=== PATIENT | female | born 1965 | race Caucasian/White ===

== ENCOUNTER → 2020-01-20 10:16 | Outpatient (CLI) | payer BC, SELFPAY ==
--- NOTE | 2020-01-20 10:20 | XR_ITS ---
PROCEDURE: XR CHEST 2V CLINICAL HISTORY: CONTUSION OF LT CHEST WALL Posttraumatic pain COMPARISON: No exams were available for comparison FINDINGS: The cardiomediastinal silhouette and pulmonary vascularity are within normal limits. The lungs are clear without infiltrates, suspicious nodules, or pleural effusions. No acute bony abnormalities. IMPRESSION: No acute findings. Dictated by: Luisito Wesley MD 01/20/2020 11:49 Luisito Wesley MD in [place] 01/20/2020 11:49
--- NOTE | 2020-01-20 10:20 | XR_ITS ---
PROCEDURE: XR RIBS LT MIN 3V W CXR1V CLINICAL INDICATION: CONTUSION OF LT CHEST WALL COMPARISON: No exams were available for comparison FINDINGS: Multiple views of the left ribs show no obvious fracture. No lytic or blastic change. Consider follow-up in 7-[address] with 3D reformats if pain persists Frontal view of the chest shows no acute finding IMPRESSION: No acute findings. Dictated by: Luisito Wesley MD 01/20/2020 11:51 Luisito Wesley MD in [place] 01/20/2020 11:51
== END ==
PROVIDERS: PCP Family Medicine; Visit Provider Family Medicine
DX: S20.212A Contusion of left front wall of thorax, initial encounter (principal)
CPT/HCPCS: 71046; 71101

== ENCOUNTER → 2020-03-05 12:13 | Outpatient (CLI) | payer BC, SELFPAY ==
[2020-03-05 12:16] LABS: Adenovirus,PCR Not Detected (NotDetected); Bordetella Pertussis Not Detected (NotDetected); Chlamydophila Pneumoniae, PCR Not Detected (NotDetected); Coronavirus 229E Not Detected (NotDetected); Coronavirus NL63 Not Detected (NotDetected); Coronavirus OC43 Not Detected (NotDetected); Coronovirus HKU1,PCR Not Detected (NotDetected); Human Metapneumovirus Not Detected (NotDetected); Influenza A, PCR Not Detected (NotDetected); Influenza AH1, 2009 Not Detected (NotDetected); Influenza AH1, PCR Not Detected (NotDetected); Influenza AH3,PCR Not Detected (NotDetected); Influenza B, PCR Not Detected (NotDetected); Mycoplasma Pneumoniae, PCR Not Detected (NotDetected); Parainfluenza 1, PCR Not Detected (NotDetected); Parainfluenza 2, PCR Not Detected (NotDetected); Parainfluenza 3, PCR Not Detected (NotDetected); Parainfluenza 4, PCR Not Detected (NotDetected); Respiratory Syncytial Virus Not Detected (NotDetected)
[2020-03-05 13:11] LABS: Basophils % 0.2 % (0.1-2.0); Eosinophils # 0.1 K/mm3 (0.0-0.4); Eosinophils % 1.3 % (0.1-12.0); Hematocrit 42.5 % (37.0-47.0); Hemoglobin 14.1 g/dL (12.2-16.2); Lymphocytes % 10.9 % (10-50); Mean Corpuscular HGB Conc 33.2 g/dL (31.8-35.4); Mean Corpuscular Hemoglobin 32.4 pg (27.0-31.2); Mean Corpuscular Volume 97.6 fl (81-99); Mean Platelet Volume 9.6 fl (7.4-10.4); Monocytes # 0.5 K/mm3 (0.1-1.0); Monocytes % 6.2 % (1.7-9.3); Neutrophils # 7.1 K/mm3 (1.8-7.8); Neutrophils % 81.4 % (37.0-80.0); Platelet Count 173 K/mm3 (142-424); Red Blood Count 4.36 M/mm3 (4.20-5.40); Red Cell Distribution Width 13.7 % (11.5-17.5); White Blood Count 8.7 K/mm3 (4.8-10.8)
[2020-03-05 17:08] LABS: Rhinovirus/Enterovirus Detected (NotDetected)
== END ==
PROVIDERS: Visit Provider Nurse Practitioner
DX: Z03.818 Encounter for observation for suspected exposure to other biological agents ruled out (principal); B34.1 Enterovirus infection, unspecified
CPT/HCPCS: 36415; 85025; 87486; 87581; 87633; 87798

== ENCOUNTER → 2022-10-02 15:48 | Outpatient (CLI) | payer BC, SELFPAY ==
--- NOTE | 2022-10-02 15:53 | MM_ITS ---
PROCEDURE INFORMATION: Exam: MG Bilateral Screening 3D Mammography Exam date and time: 10/02/2022 3:45 PM Age: 57 years old Clinical indication: Screening. No family history of breast cancer. TECHNIQUE: Imaging protocol: Bilateral Screening tomosynthesis and 2D mammography including computer-aided detection (CAD) when performed. COMPARISON: 1. MG DMSB DIG MAMM-SCREEN FARAZ 01/19/2015 4:21 PM 2. MG DMSB DIGITAL MAMM-SCREEN BILATERAL 07/28/2010 1:44 PM 3. BL US BREAST-LT COMPLETE W/AXILLA 02/12/2015 3:14 PM 4. BR US BREAST-RT COMPLETE W/AXILLA 02/12/2015 2:54 PM FINDINGS: MAMMOGRAPHY: Breast composition: There are scattered areas of fibroglandular density. Mass: Questionable 0.5 cm oval mass in the left upper outer quadrant posterior 3rd. Architectural distortion: None. Calcifications: No suspicious calcifications. Asymmetric density: None. Skin thickening: None. Axillary adenopathy: None. IMPRESSION: Patient will be recalled for left diagnostic spot compression in CC and MLO and left sonography for further evaluation of questionable left breast mass. ASSESSMENT: BI-RADS Category 0: Incomplete- Need Additional Imaging Evaluation and/or Prior Mammograms for Comparison
== END ==
PROVIDERS: PCP Family Medicine; Visit Provider Family Medicine
DX: Z12.31 Encounter for screening mammogram for malignant neoplasm of breast (principal)
CPT/HCPCS: 77063; 77067

== ENCOUNTER → 2022-10-07 10:41 | Outpatient (CLI) | payer BC, SELFPAY ==
[2022-10-07 11:07] LABS: Basophils % 0.3 % (0.1-2.0); Eosinophils # 0.2 K/mm3 (0.0-0.4); Eosinophils % 4.3 % (0.1-12.0); Hematocrit 34.4 % (37.0-47.0); Hemoglobin 11.4 g/dL (12.2-16.2); Lymphocytes # 1.5 K/mm3 (0.7-4.5); Lymphocytes % 31.2 % (10-50); Mean Corpuscular HGB Conc 33.2 g/dL (31.8-35.4); Mean Corpuscular Hemoglobin 29.7 pg (27.0-31.2); Mean Corpuscular Volume 89.7 fl (81-99); Mean Platelet Volume 10.5 fl (7.4-10.4); Monocytes # 0.3 K/mm3 (0.1-1.0); Monocytes % 6.4 % (1.7-9.3); Neutrophils # 2.9 K/mm3 (1.8-7.8); Neutrophils % 57.8 % (37.0-80.0); Platelet Count 221 K/mm3 (142-424); Red Blood Count 3.84 M/mm3 (4.20-5.40); Red Cell Distribution Width 13.6 % (11.5-17.5); White Blood Count 4.9 K/mm3 (4.8-10.8)
[2022-10-07 11:23] LABS: Chloride 104 mmol/L (98-107); Potassium 4.5 mmoL/L (3.5-5.1); Sodium 139 mmol/L (136-145)
[2022-10-07 11:25] LABS: Blood Urea Nitrogen 24 mg/dl (7-17); Estimated Glomerular Filt Rate 74 ml/min (>60); GFR (African American) 90 ML/MIN (>60)
[2022-10-07 11:26] LABS: Alanine Aminotransferase 19 U/L (12-78); Albumin Level 3.6 g/dl (3.5-5.0); Albumin/Globulin Ratio 1.4 (1.1-1.8); Alkaline Phosphatase 95 U/L (38-126); Anion Gap 10.5 mEq/L (5-15); Aspartate Amino Transferase 28 U/L (14-36); Bilirubin,Total 0.3 mg/dl (0.2-1.3); Carbon Dioxide 29 mmol/L (22.0-30.0); Cholesterol 231 mg/dl (140-200); Globulin 2.6 g/dL (1.3-3.2); Glucose 94 mg/dl (74-100); Total Protein,Serum 6.2 g/dl (6.3-8.2); Triglycerides 253 mg/dl (30-150); VLDL Cholesterol 51 mg/dL (0-40)
[2022-10-07 11:27] LABS: Chol/HDL Ratio 4.7 (1-3.5); HDL Cholesterol 49 mg/dl (40-60)
[2022-10-07 11:37] LABS: Direct LDL Cholesterol 89.17 mg/dL (100-129)
[2022-10-07 11:57] LABS: Thyroid Stimulating Hormone 2.06 uIU/mL (0.465-4.68)
== END ==
PROVIDERS: PCP Family Medicine; Visit Provider Family Medicine
DX: I10 Essential (primary) hypertension (principal); E78.5 Hyperlipidemia, unspecified; E01.0 Iodine-deficiency related diffuse (endemic) goiter; F41.8 Other specified anxiety disorders
CPT/HCPCS: 36415; 80053; 80061; 84443; 85025

== ENCOUNTER 2023-07-22 16:23 | Emergency (ER) | payer BC, SELFPAY ==
--- NOTE | 2023-07-22 17:04 | EXP.UTC ---
Discharge Plan Disposition Patient Disposition: Home, Self-Care Condition: Good Prescriptions Prescriptions: New azithromycin [Zithromax] 250 mg tablet 250 mg PO UD DOSE PK Qty: 6 0RF Rx Instructions: Take two (2) tablets today, then one (1) tablet days #2 thru #5 benzonatate 100 mg capsule 100 mg PO TIDP PRN (Reason: Cough) Qty: 30 0RF methylprednisolone 4 mg Tablets,Dose Pack 4 mg PO DIRECTED 6 Days Qty: 21 0RF Rx Instructions: Take 1 pack as directed for 6 days No Action metoprolol succinate 25 mg tablet extended release 24 hr 25 mg PO DAILY Patient Comments: TAKE 1 TABLET BY MOUTH ONCE DAILY FOR 30 DAYS hydrochlorothiazide 12.5 mg tablet 12.5 mg PO DAILY Patient Comments: TAKE 1 TABLET BY MOUTH ONCE DAILY FOR 30 DAYS lisinopril 10 mg tablet 10 mg PO DAILY Patient Comments: TAKE 1 TABLET BY MOUTH ONCE DAILY duloxetine 60 mg capsule,delayed release(DR/EC) 60 mg PO DAILY Referrals Follow up/Referrals: Joo Feliciano MD [Primary Care Provider] - See instructions Activity Restrictions/Add. Instructions Additional Instructions/Restrictions: Drink plenty of fluids. Take tylenol or ibuprofen for pain or fever. Take the medications as directed. Follow up with your regular doctor. GO TO THE ER FOR ANY WORSENING SYMPTOMS Clinical Impressions Clinical Impression: Acute viral syndrome Pharyngitis Qualifiers: Pharyngitis/tonsillitis etiology: unspecified etiology Qualified Code(s): J02.9 - Acute pharyngitis, unspecified Instructions Patient Instructions: DI for Viral Syndrome Discharge ED Provider: Jose Rodriguez [facility] General Stated complaint: sore throat,cough Time Seen by Provider: 07/22/23 17:03 History of Present Illness Provider Complaint: She states that she has had sore throat, fever and chills for the past 1 day. Related Data Home Medications Medication Instructions Recorded Confirmed hydrochlorothiazide 12.5 mg tablet 12.5 mg PO DAILY 10/14/19 07/22/23 lisinopril 10 mg tablet 10 mg PO DAILY 10/14/19 07/22/23 metoprolol succinate 25 mg 25 mg PO DAILY 10/14/19 07/22/23 tablet,extended release 24 hr duloxetine 60 mg capsule,delayed 60 mg PO DAILY 07/22/23 07/22/23 release Previous Rx's Medication Instructions Recorded azithromycin 250 mg tablet 250 mg PO UD DOSE PK #6 tabs 07/22/23 (Zithromax) benzonatate 100 mg capsule 100 mg PO TIDP PRN Cough #30 caps 07/22/23 methylprednisolone 4 mg tablets in 4 mg PO DIRECTED 6 days #21 tabs 07/22/23 a dose pack Allergies Allergy/AdvReac Type Severity Reaction Status Date / Time No Known Allergies Allergy Verified 07/22/23 17:25 [facility] Disclaimer: The information contained in this section may have been updated after the patient was seen, as this information can be updated by other users. Social History Smoking Status: Current every day smoker alcohol intake: never current occupational status: employed Travel in the last 8 weeks: None current occupational exposures/hazards: No caffeine: Yes ROS Obtained: Yes All systems reviewed & no additional complaints except as documented Constitutional Constitutional: Reports chills and Reports fever(s) Eyes Eyes: Denies eye discharge ENT Ears, Nose, Mouth, and Throat: Reports as per HPI Cardiovascular Cardiovascular: Denies chest pain Respiratory Respiratory: Denies chest congestion and Reports cough Gastrointestinal Gastrointestingal: Reports nausea; Denies abdominal pain, constipation, cramping, diarrhea or vomiting Musculoskeletal Musculoskeletal: Denies arthralgias Integumentary/Breasts Skin/Breast: Denies rash Neurologic Neurologic: Denies paresthesias Physical Exam General General appearance: alert and in no apparent distress Head Head exam: atraumatic, normocephalic and normal inspection Eye Eye exam: Present normal appearance, PERRL and EOMI ENT ENT exam: Present mucous membranes moist and normal external ear exam Expanded ENT Exam TM/Canal exam: Bilateral TM: erythema and bulging Nose exam: Absent sinus tenderness Mouth exam: Present normal external inspection; Absent drooling Teeth exam: Present normal inspection Throat exam: Present tonsillar erythema, tonsillomegaly and tonsillar exudate Neck Neck exam: Present normal inspection, full ROM and trachea midline; Absent tenderness, meningismus or lymphadenopathy Chest Chest inspection: Present normal inspection and symmetric chest wall rise; Absent tenderness Respiratory Respiratory exam: Present normal lung sounds bilaterally; Absent respiratory distress, wheezes or stridor Cardiovascular Cardiovascular exam: Present regular rate and normal rhythm; Absent systolic murmur or diastolic murmur Abdominal Exam Abdominal exam: Present soft and normal bowel sounds; Absent distention, tenderness, guarding, rebound or rigidity Extremities Exam Extremities exam: Present normal inspection and normal capillary refill; Absent calf tenderness Back Exam Back exam: Present normal inspection and full ROM; Absent tenderness, CVA tenderness (R) or CVA tenderness (L) Neurological Exam Neurological exam: Present alert, oriented X3 and CN II-XII intact Psychiatric Psychiatric exam: Present normal affect and normal mood Skin Skin exam: Present warm, dry, intact and normal color Medical Decision Making Medical Records Medical records reviewed: No I reviewed the patient's medical records. Ap Inquiry Pt receiving controlled substance: No Lab Data Lab results reviewed: Yes I reviewed the patient's lab results.
[2023-07-22 17:05] VITALS: BP 111/73; PULSE 106; RESP 18; TEMP 36.7; O2SAT 99; BMI 27.8
[2023-07-22 17:49] VITALS: BP 111/73; PULSE 106; RESP 18; TEMP 36.7; O2SAT 99
--- NOTE | 2023-07-22 17:49 | PC.NURSE ---
Sent rapid covid/flu to lab
[2023-07-22 17:50] LABS: Coronavirus 19, PCR Not Detected (NotDetected); Influenza A, PCR Not Detected (NotDetected); Influenza B, PCR Not Detected (NotDetected)
== END 2023-07-22 17:49 | disposition home or self-care (01) ==
PROVIDERS: Emergency Provider Nurse Practitioner Family; PCP Family Medicine
DX: J02.9 Acute pharyngitis, unspecified (principal); B34.9 Viral infection, unspecified; R50.9 Fever, unspecified; F17.200 Nicotine dependence, unspecified, uncomplicated; R05.9 Cough, unspecified
CPT/HCPCS: 87636; 99204; 99212; G0463

== ENCOUNTER 2024-04-11 08:25 | Emergency (ER) | payer BC, SELFPAY ==
[2024-04-11 08:45] VITALS: BP 121/89; PULSE 114; RESP 21; TEMP 36.7; O2SAT 96; BMI 28.8
--- NOTE | 2024-04-11 08:56 | EXP.UTC ---
Discharge Plan Disposition Patient Disposition: Home, Self-Care Condition: Good Prescriptions Prescriptions: New azithromycin [Zithromax] 250 mg tablet 250 mg PO UD DOSE PK Qty: 6 0RF Rx Instructions: Take two (2) tablets today, then one (1) tablet days #2 thru #5 benzonatate 100 mg capsule 100 mg PO TIDP PRN (Reason: Cough) Qty: 30 0RF No Action hydrochlorothiazide 12.5 mg tablet 12.5 mg PO DAILY Patient Comments: TAKE 1 TABLET BY MOUTH ONCE DAILY FOR 30 DAYS lisinopril 10 mg tablet 10 mg PO DAILY Patient Comments: TAKE 1 TABLET BY MOUTH ONCE DAILY meloxicam 15 mg tablet 15 mg PO DAILY Referrals Follow up/Referrals: Joo Feliciano MD [Primary Care Provider] - See instructions Activity Restrictions/Add. Instructions Additional Instructions/Restrictions: Drink plenty of fluids. Take tylenol or ibuprofen for pain or fever. Take the medications as directed. Follow up with your regular doctor. GO TO THE ER FOR ANY WORSENING SYMPTOMS Clinical Impressions Clinical Impression: Acute viral syndrome Sinusitis Qualifiers: Sinusitis location: maxillary Chronicity: acute Recurrence: non-recurrent Qualified Code(s): J01.00 - Acute maxillary sinusitis, unspecified Instructions Patient Instructions: Sinusitis, DI for Sinusitis Print Language Print Language: [place] Discharge ED Provider: Jose Rodriguez [facility] General Stated complaint: sinus congestion, cough, headache Mode of Arrival: Ambulatory Source of Information: Patient Time Seen by Provider: 04/11/24 08:56 Description of Symptoms (Recalled from Triage Doc. by RN): COUGH, BODY ACHES, FEVER, CHILLS, SINUS HEADACHE HEENT Symptoms (Recalled from RN notes): Yes Resp Symptoms (Recalled from RN notes): Yes Skin Symptoms (Recalled from RN notes): No MS Symptoms (Recalled from RN notes): No Functional Status (Recalled from RN notes): WNL Related Data Home Medications ?Medication ?Instructions ?Recorded ?Confirmed hydrochlorothiazide 12.5 mg tablet 12.5 mg PO DAILY 10/14/19 04/11/24 lisinopril 10 mg tablet 10 mg PO DAILY 10/14/19 04/11/24 meloxicam 15 mg tablet 15 mg PO DAILY 04/11/24 04/11/24 Previous Rx's ?Medication ?Instructions ?Recorded azithromycin 250 mg tablet 250 mg PO UD DOSE PK #6 tabs 04/11/24 (Zithromax) benzonatate 100 mg capsule 100 mg PO TIDP PRN Cough #30 caps 04/11/24 Allergies Allergy/AdvReac Type Severity Reaction Status Date / Time No Known Allergies Allergy Verified 07/22/23 17:25 Worker's Comp Is this a Worker's Comp case?: [facility] Dis[facility]: The information contained in this section may have been updated after the patient was seen, as this information can be updated by other users. Medical History (Updated 04/11/24 @ 09:39 by Jose Rodriguez APRN) Hypertension Social History Smoking Status: Current every day smoker alcohol intake: never current occupational status: employed current occupational exposures/hazards: No caffeine: Yes ROS Obtained: Yes All systems reviewed & no additional complaints except as documented Constitutional Constitutional: Reports chills and Reports fever(s) Eyes Eyes: Denies eye discharge ENT Ears, Nose, Mouth, and Throat: Reports as per HPI Cardiovascular Cardiovascular: Denies chest pain Respiratory Respiratory: Denies chest congestion and Reports cough Gastrointestinal Gastrointestingal: Reports nausea; Denies abdominal pain, constipation, cramping, diarrhea or vomiting Musculoskeletal Musculoskeletal: Denies arthralgias Integumentary/Breasts Skin/Breast: Denies rash Neurologic Neurologic: Denies paresthesias Physical Exam General General appearance: alert and in no apparent distress Eye Eye exam: Present normal appearance, PERRL and EOMI ENT ENT exam: Present mucous membranes moist and normal external ear exam Expanded ENT Exam External ear exam: Present normal external inspection TM/Canal exam: Bilateral TM: erythema and bulging Nose exam: Absent sinus tenderness Nasal speculum exam: Bilateral: normal Mouth exam: Present normal external inspection; Absent drooling Teeth exam: Present normal inspection Throat exam: Present tonsillar erythema and tonsillomegaly Neck Neck exam: Present normal inspection, full ROM and trachea midline; Absent tenderness, lymphadenopathy or thyromegaly Chest Chest inspection: Present normal inspection and symmetric chest wall rise; Absent tenderness or rash Respiratory Respiratory exam: Present normal lung sounds bilaterally; Absent respiratory distress, wheezes, stridor or accessory muscle use Cardiovascular Cardiovascular exam: Present regular rate, normal rhythm and normal heart sounds Abdominal Exam Abdominal exam: Present soft; Absent distention, tenderness, guarding, rebound or rigidity Extremities Exam Extremities exam: Present normal inspection, full ROM and normal capillary refill; Absent tenderness or calf tenderness Back Exam Back exam: Present normal inspection and full ROM; Absent tenderness Neurological Exam Neurological exam: Present alert and oriented X3 Psychiatric Psychiatric exam: Present normal affect and normal mood Skin Skin exam: Present warm, dry, intact and normal color Lymphatic Lymphatic Findings: no adenopathy Medical Decision Making Medical Records Medical records reviewed: No I reviewed the patient's medical records. Screening: Per USPSTF and CDC recommendations, given the prevalence of disease in our region, it is our hospital?s policy to screen for HIV and viral Hepatitis for all patients aged 18 and over and those with ongoing risk factors. Ap Inquiry Pt receiving controlled substance: No Vital Signs: 04/11/24 08:45 Temperature 98.0 F Temperature Source Oral Pulse Rate [Left Radial] 114 H Respiratory Rate 21 Blood Pressure [Left Arm] 121/89 Blood Pressure Mean [Left Arm] 99 02 Sat by Pulse Oximetry 96
[2024-04-11 08:59] LABS: UTC Influenza A Antigen Negative (Negative); UTC Influenza B Antigen Negative (Negative)
[2024-04-11 09:41] VITALS: BP 121/89; PULSE 114; RESP 21; TEMP 36.7
== END 2024-04-11 09:41 | disposition home or self-care (01) ==
PROVIDERS: Emergency Provider Nurse Practitioner Family; PCP Family Medicine
DX: B34.9 Viral infection, unspecified (principal); J01.00 Acute maxillary sinusitis, unspecified; R50.9 Fever, unspecified; R05.9 Cough, unspecified; R51.9 Headache, unspecified; R11.0 Nausea
CPT/HCPCS: 87635; 87804; 99212; G0381

== ENCOUNTER 2024-06-06 11:08 | Outpatient (CLI) | payer BC, SELFPAY ==
[2024-06-06 11:29] LABS: Basophils % 0.2 % (0.1-2.0); Eosinophils # 0.3 K/mm3 (0.0-0.4); Eosinophils % 5.6 % (0.1-12.0); Hematocrit 35.9 % (37.0-47.0); Hemoglobin 11.8 g/dL (12.2-16.2); Lymphocytes # 1.6 K/mm3 (0.7-4.5); Mean Corpuscular HGB Conc 32.9 g/dL (31.8-35.4); Mean Corpuscular Hemoglobin 29.1 pg (27.0-31.2); Mean Corpuscular Volume 88.6 fl (81-99); Mean Platelet Volume 12.4 fl (7.4-10.4); Monocytes # 0.4 K/mm3 (0.1-1.0); Monocytes % 7.8 % (1.7-9.3); Neutrophils # 2.2 K/mm3 (1.8-7.8); Neutrophils % 50.2 % (37.0-80.0); Platelet Count 184 K/mm3 (142-424); Red Blood Count 4.05 M/mm3 (4.20-5.40); Red Cell Distribution Width 13.2 % (11.5-17.5); White Blood Count 4.5 K/mm3 (4.8-10.8)
[2024-06-06 11:49] LABS: Alanine Aminotransferase 17 U/L (12-78); Albumin Level 4.1 g/dl (3.5-5.0); Albumin/Globulin Ratio 1.9 (1.1-1.8); Alkaline Phosphatase 89 U/L (38-126); Anion Gap 9.2 mEq/L (5-15); Aspartate Amino Transferase 23 U/L (14-36); Bilirubin,Total 0.5 mg/dl (0.2-1.3); Blood Urea Nitrogen 24 mg/dl (7-17); Calcium 9.5 mg/dl (8.4-10.2); Carbon Dioxide 26 mmol/L (22.0-30.0); Chloride 108 mmol/L (98-107); Chol/HDL Ratio 4.7 (1-3.5); Cholesterol 258 mg/dl (140-200); Estimated Glomerular Filt Rate 86 ml/min (>60); GFR (African American) 104 ML/MIN (>60); Globulin 2.2 g/dL (1.3-3.2); Glucose 103 mg/dl (74-100); HDL Cholesterol 55 mg/dl (40-60); Potassium 4.2 mmoL/L (3.5-5.1); Sodium 139 mmol/L (136-145); Total Protein,Serum 6.3 g/dl (6.3-8.2); Triglycerides 177 mg/dl (30-150); Uric Acid 5.3 mg/dl (2.5-6.2); VLDL Cholesterol 35 mg/dL (0-40)
[2024-06-06 12:00] LABS: Direct LDL Cholesterol 133.63 mg/dL (100-129)
== END 2024-06-06 23:59 | disposition home or self-care (01) ==
LOC: LAB 11:11
PROVIDERS: PCP Family Medicine; Visit Provider Family Medicine
DX: I10 Essential (primary) hypertension (principal); F41.8 Other specified anxiety disorders; E78.5 Hyperlipidemia, unspecified; M10.9 Gout, unspecified
CPT/HCPCS: 36415; 80053; 80061; 84550; 85025

== ENCOUNTER 2025-04-23 08:56 | Outpatient (CLI) | payer BC, SELFPAY ==
[2025-04-23 09:18] LABS: Hematocrit 35.5 % (37.0-47.0); Hemoglobin 11.9 g/dL (12.2-16.2); Immature Granulocytes % 0.2 %; Mean Corpuscular HGB Conc 33.5 g/dL (31.8-35.4); Mean Corpuscular Hemoglobin 30.2 pg (27.0-31.2); Mean Corpuscular Volume 90.1 fl (81-99); Nucleated Red Blood Cells % 0 %; Platelet Count 192 K/mm3 (142-424); Red Blood Count 3.94 M/mm3 (4.20-5.40); Red Cell Distribution Width-SD 43.3 fL; White Blood Count 4.2 K/mm3 (4.8-10.8)
[2025-04-23 09:37] LABS: Albumin Level 4.0 g/dl (3.5-5.0); Chloride 104 mmol/L (98-107); Sodium 141 mmol/L (136-145)
[2025-04-23 09:38] LABS: Potassium 4.2 mmoL/L (3.5-5.1)
[2025-04-23 09:40] LABS: Alanine Aminotransferase 18 U/L (12-78); Albumin/Globulin Ratio 1.6 (1.1-1.8); Alkaline Phosphatase 96 U/L (38-126); Anion Gap 12.2 mEq/L (5-15); Aspartate Amino Transferase 23 U/L (14-36); Bilirubin,Total 0.5 mg/dl (0.2-1.3); Blood Urea Nitrogen 25 mg/dl (7-17); Carbon Dioxide 29 mmol/L (22.0-30.0); Cholesterol 247 mg/dl (140-200); Creatinine,Serum 0.90 mg/dl (0.52-1.04); Estimated Glomerular Filt Rate 64 ml/min (>60); GFR (African American) 78 ML/MIN (>60); Globulin 2.5 g/dL (1.3-3.2); Iron 100 ug/dL (37-170); Total Protein,Serum 6.5 g/dl (6.3-8.2); Triglycerides 226 mg/dl (30-150)
[2025-04-23 09:41] LABS: Calcium 9.1 mg/dl (8.4-10.2); Glucose 98 mg/dl (74-100)
[2025-04-23 11:14] LABS: Uric Acid 5.5 mg/dl (2.5-6.2)
[2025-04-23 11:24] LABS: HDL Cholesterol 52 mg/dl (40-60)
[2025-04-23 12:04] LABS: Vitamin B12 938 pg/mL (239-931)
[2025-04-23 12:28] LABS: Folate 17.50 ng/mL
== END 2025-04-23 23:59 | disposition home or self-care (01) ==
PROVIDERS: PCP Family Medicine; Visit Provider Family Medicine
DX: D64.9 Anemia, unspecified (principal); M10.9 Gout, unspecified; I10 Essential (primary) hypertension; E78.5 Hyperlipidemia, unspecified
CPT/HCPCS: 36415; 80053; 80061; 82607; 82746; 83540; 84550; 85025